=== PATIENT | female | born 1970 | race Caucasian/White ===

== ENCOUNTER 2021-05-18 15:27 | Emergency (ER) | payer OTHER, SELFPAY ==
--- NOTE | 2021-05-18 15:35 | ECG_ITS ---
Measurements Intervals [place] Rate: 90 P: 48 CT: 139 QRS: 17 QRSD: 105 T: 68 QT: 353 QTc: 434 Interpretive Statements SINUS RHYTHM INCOMPLETE RIGHT BUNDLE BRANCH BLOCK BORDERLINE ECG Electronically Signed On 05-20-2021 7:53:26 CDT by Luis Miguel Mcmanus D.O.
[2021-05-18 15:50] VITALS: BP 140/105; PULSE 87; RESP 18; TEMP 36.4; O2SAT 100
[2021-05-18] MEDS: ONDANSETRON INJ 4 MG/2 ML VIAL IV PUSH (15:50)
[2021-05-18] MEDS: SODIUM CHLORIDE 0.9% IV 1,000 ML 999 ML IV CONT (15:50)
[2021-05-18 16:15] VITALS: BP 152/97; PULSE 91; RESP 18; O2SAT 95
[2021-05-18 16:16] LABS: Basophils Absolute Auto 0.05 K/mm3 (0.00-0.10); Basophils Percent Auto 0.3 % (0.0-1.0); Eosinophils Absolute Auto 0.06 K/mm3 (0.02-0.50); Eosinophils Percent Auto 0.4 % (1.0-6.0); Hematocrit 46.4 % (35.0-49.0); Immature Granulocyte Absolute 0.08 K/mm3 (0.00-0.00); Immature Granulocyte Percent A 0.5 % (0.0-0.0); Lymphocytes Absolute Auto 1.26 K/mm3 (1.10-4.50); Lymphocytes Percent Auto 8.6 % (18.0-42.0); Mean Corpuscular HGB Conc 34.5 g/dL (32.0-36.0); Mean Corpuscular Hemoglobin 32.9 pg (27.0-31.0); Mean Corpuscular Volume 95.3 fL (78.0-102.0); Mean Platelet Volume 9.4 fl (9.2-11.8); Monocytes Absolute Auto 1.07 K/mm3 (0.10-0.90); Monocytes Percent Auto 7.3 % (2.0-11.0); Neutrophils Absolute Auto 12.1 K/mm3 (1.7-7.2); Neutrophils Percent Auto 82.9 % (50.0-70.0); Platelet Count Result 249 K/mm3 (150-420); Red Blood Count 4.87 M/mm3 (4.20-5.40); Red Cell Distribution Width 13.1 % (11.6-14.4); White Blood Count 14.6 K/mm3 (4.8-10.8)
[2021-05-18 16:29] LABS: Alanine Aminotransferase 55 U/L (14-59); Albumin Level 4.6 g/dL (3.4-5.0); Alkaline Phosphatase 68 U/L (46-116); Anion Gap 15 mmol/L (8-16); Aspartate Amino Transferase 33 U/L (15-37); Blood Urea Nitrogen 15 mg/dL (7-18); Calcium 9.1 mg/dL (8.5-10.1); Carbon Dioxide 23 mmol/L (21-32); Chloride 108 mmol/L (98-108); Creatine Kinase 59 U/L (26-192); Estimated CRCL calculation 46 ml/min; Estimated Glomerular Filt Rate 43; Glucose 100 mg/dL (70-99); Magnesium 1.9 mg/dL (1.8-2.4); Osmolality Calculated 302 mOsm/kg (285-295); Potassium 3.3 mmol/L (3.5-5.1); Sodium 146 mmol/L (136-145)
[2021-05-18 16:32] LABS: Lactic Acid Reflex 0.9 mmol/L (0.4-2.0)
[2021-05-18 16:52] LABS: Bilirubin Urine 1+ (Negative); Color Urine Yellow (Yellow); Glucose Urine UA Negative (Negative); Ketones Urine 1+ (Negative); Leukocyte Esterase Ur Negative (Negative); Nitrate Urine Negative (Negative); Protein Urine Trace (Negative); Specific Grav Ur >= 1.030 (1.010-1.020); Urobilinogen Urine 0.2 mg/dL (0.2-1.0); pH Urine 5.5 (5.0-8.0)
[2021-05-18 17:00] LABS: Add Urine Microscopic? YES; Appearance Urine Sl Cloudy (Clear); Blood Urine Trace-Intact (Negative)
[2021-05-18 17:01] LABS: Bacteria Urine 1+ /hpf; Mucus Urine Heavy /lpf; RBC Urine 0-2 /hpf (0-2); Squamous Epithelial Cell Urine Few /hpf (Few); WBC Urine None seen /hpf (0-3)
--- NOTE | 2021-05-18 17:11 | ED.FEMALEGU ---
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 Severity: mild Related Data Home Medications Medication Instructions Recorded Confirmed omeprazole 20 mg PO DAILY 05/18/21 05/18/21 Allergies Allergy/AdvReac Type Severity Reaction Status Date / Time No Known Allergies Allergy Verified 05/18/21 15:54 Review of Systems Review of Systems: All systems reviewed & are unremarkable except as noted in HPI and below PMFSH Past Medical History Medical History Patient denies medical problems Exam Const: General: no acute distress Orientation/consciousness: patient oriented x3 HENMT: Head: normal to inspection and contusion Eyes: General: appearance normal, both eyes and all related structures Conjunctivae: conjunctivae normal Pupils: Equal, round and reactive pupils present Neck: Neck: normal visual inspection, no lymphadenopathy and no meningeal signs Resp: Effort & Inspection: normal respiratory effort Auscultation: clear to auscultation bilaterally : General: Yes no CVA tenderness Back/Spine/Pelvis: Back: no CVA tenderness Skin: General skin exam: normal color Rashes: no rashes Neuro: General: patient oriented x3 and moves all extremities Psych: Mental Status: mental status grossly normal Affect: normal affect Attitude: cooperative Course Course Emergency Course: labs reviewed with patient and advised to take medicine as prescribed. Patient has improved after IV fluids. Vital Signs Vital signs: Vital Signs Temperature 36.4 C L 05/18/21 15:50 Pulse Rate 87 05/18/21 15:50 Respiratory Rate 18 05/18/21 15:50 Blood Pressure 140/105 H 05/18/21 15:50 Pulse Oximetry 100 05/18/21 15:50 Temperature 36.4 C L 05/18/21 15:50 Pulse Rate 91 05/18/21 16:15 Respiratory Rate 18 05/18/21 16:15 Blood Pressure 152/97 H 05/18/21 16:15 Pulse Oximetry 95 05/18/21 16:15 MDM - Female Genitourinary Lab Data Result diagrams: 05/18/21 16:10 05/18/21 16:10 Labs: Lab Results 05/18/21 05/18/21 05/18/21 Range/Units 15:35 16:10 16:10 WBC 14.6 H (4.8-10.8) K/mm3 RBC 4.87 (4.20-5.40) M/mm3 Hgb 16.0 H (12.0-15.0) g/dL Hct 46.4 (35.0-49.0) % MCV 95.3 (78.0-102.0) fL MCH 32.9 H (27.0-31.0) pg MCHC 34.5 (32.0-36.0) g/dL RDW 13.1 (11.6-14.4) % Plt Count 249 (150-420) K/mm3 MPV 9.4 (9.2-11.8) fl Immature Gran % (Auto) 0.5 H (0.0-0.0) % Neut % (Auto) 82.9 H (50.0-70.0) % Lymph % (Auto) 8.6 L (18.0-42.0) % Trinity % (Auto) 7.3 (2.0-11.0) % Eos % (Auto) 0.4 L (1.0-6.0) % Baso % (Auto) 0.3 (0.0-1.0) % Lymph # (Auto) 1.26 (1.10-4.50) K/mm3 Trinity # (Auto) 1.07 H (0.10-0.90) K/mm3 Eos # (Auto) 0.06 (0.02-0.50) K/mm3 Baso # (Auto) 0.05 (0.00-0.10) K/mm3 Abs Immat Gran (auto) 0.08 H (0.00-0.00) K/mm3 Absolute Neuts (auto) 12.1 H (1.7-7.2) K/mm3 Absolute Nucleated RBC 0.00 (0.00-0.00) K/mm3 Nucleated RBC % 0.0 (0-0.0) % Sodium 146 H (136-145) mmol/L Potassium 3.3 L (3.5-5.1) mmol/L Chloride 108 (98-108) mmol/L Carbon Dioxide 23 (21-32) mmol/L Anion Gap 15 (8-16) mmol/L BUN 15 (7-18) mg/dL Creatinine 1.32 H (0.55-1.02) mg/dL Estim Creat Clear Calc 46 ml/min Estimated GFR 43 L (59 - ) Glucose 100 H (70-99) mg/dL Calculated Osmolality 302 H (285-295) mOsm/kg Lactic Acid (0.4-2
[2021-05-18 17:24] VITALS: BP 146/93; PULSE 84; RESP 16; O2SAT 95
== END 2021-05-18 17:25 | disposition home or self-care (01) ==
PROVIDERS: Emergency Provider Emergency Medicine; PCP Family Medicine
DX: E86.0 Dehydration (principal); N30.00 Acute cystitis without hematuria
CPT/HCPCS: 36415; 80053; 81001; 82550; 83605; 83735; 85025; 93005; 96361; 96374; 99283; 99284; J2405; J7030

== ENCOUNTER 2023-10-15 09:26 | Emergency (ER) | payer OTHER, SELFPAY ==
[2023-10-15] VITALS (14 sets, daily range): BP systolic 130–160; BP diastolic 95–105; PULSE 89; RESP 17–24; TEMP 36.4–36.6; O2SAT 95–99
--- NOTE | ~2023-10-15 | XR_ITS ---
EXAMINATION: XR chest 1V portable DATE: 10/15/2023 09:56 INDICATION: Shortness of breath TECHNIQUE: frontal view of the chest was obtained. COMPARISON: Chest radiograph dated 12/05/2017 FINDINGS: The lungs remain clear with no focal airspace opacities, pulmonary edema, pleural effusion or pneumot horax. The cardiomediastinal silhouette is normal. Visualized bones and soft tissues are unremarkable . IMPRESSION: 1. No acute cardiopulmonary disease. Reviewed, dictated and finalized at location A. HEALTH AIDE CAREGIVER
[2023-10-15] MEDS: SODIUM CHLORIDE 0.9% IV 1,000 ML 999 ML IV CONT (10:24)
[2023-10-15] MEDS: ONDANSETRON INJ 4 MG/2 ML VIAL IV PUSH (10:24)
[2023-10-15 11:21] LABS: SARS-CoV-2 RNA PCR Negative (Negative)
[2023-10-15 11:23] LABS: Influenza A QL RT-PCR Negative (Negative); Influenza B QL RT-PCR Negative (Negative); RSV RNA, RT-PCR Negative (Negative)
--- NOTE | 2023-10-15 11:34 | ED.URI ---
HPI - URI/Sore Throat General Chief Complaint: Upper Respiratory Infection Stated Complaint: nausea; vomiting Time Seen by Provider: 10/15/23 09:32 Source: patient Mode of arrival: ambulatory Limitations: no limitations History of Present Illness HPI Narrative: this is 52-year-old female who presents with nausea and vomiting with some no abdominal pain does have some nasal congestion with no fever chills O2 saturations 96% on room air there is nonproductive cough with no chest pain no abdominal pain no diarrhea constipation. MD elicited complaint: nasal congestion Onset (ago): hour(s) Consistency: intermittent Severity: mild Related Data Allergies Allergy/AdvReac Type Severity Reaction Status Date / Time No Known Allergies Allergy Verified 10/15/23 09:53 Review of Systems Review of Systems: All systems reviewed & are unremarkable except as noted in HPI and below PMFSH Past Medical History Medical History Patient denies medical problems Exam Const: General: healthy appearing and no acute distress Nutritional Appearance: well nourished Orientation/consciousness: patient oriented x3 Eyes: Conjunctivae: conjunctivae normal Chest: Chest palpation & inspection: normal inspection of the chest Resp: Effort & Inspection: normal respiratory effort Auscultation: clear to auscultation bilaterally Cardio: Rate: regular rate Rhythm: regular rhythm GI: GI Palp: Yes Soft to palpation Auscultation: normal bowel sounds : General: Yes bladder normal to palpation Skin: General skin exam: normal color Rashes: no rashes Neuro: General: patient oriented x3 and moves all extremities Extrem: General: normal to inspection Psych: Mental Status: mental status grossly normal Course Course Emergency Course: Patient received IV fluids and IV Zofran and after reassessment patient's nausea vomiting has improved, COVID RSV and influenza are negative chest x-ray performed shows no acute cardiopulmonary abnormalities. Vital Signs Vital signs: Vital Signs Temperature 36.4 C 10/15/23 09:26 Pulse Rate 89 10/15/23 09:26 Respiratory Rate 24 H 10/15/23 09:26 Blood Pressure 160/105 H 10/15/23 09:26 Pulse Oximetry 96 10/15/23 09:26 Oxygen Delivery Room Air 10/15/23 09:26 Temperature 36.4 C 10/15/23 09:26 Pulse Rate 89 10/15/23 09:26 Respiratory Rate 24 H 10/15/23 09:26 Blood Pressure 146/99 H 10/15/23 11:01 Pulse Oximetry 96 10/15/23 11:01 Oxygen Delivery Room Air 10/15/23 09:26 MDM - URI/Sore Throat Lab Data Labs: Lab Results 10/15/23 Range/Units 10:38 Influenza A (RT-PCR) Negative (Negative) Influenza B (RT-PCR) Negative (Negative) RSV (RT-PCR) Negative (Negative) SARS-CoV-2 RNA (RT-PCR) Negative (Negative) Critical Care Time Critical Care Time Critical Care Time: No Discharge Plan Discharge Clinical Impression: Gastroenteritis Patient Disposition: Home, Self-Care Condition: Stable Instructions: Antibiotic Form, Gastroenteritis (ED), Clear Liquid Diet (ED) Additional Instructions: advised to take medicine as prescribed, can take Tylenol as needed for pain and follow up with primary within a week for further evaluation treatment. Prescriptions: New ondansetron 4 mg tablet,disintegrating 4 mg PO Q6H PRN (Reason: nausea and vomiting) Qty: 20 0RF Follow-up/Referrals: Peter,MD Marquez [Primary Care Provider] - Time of Disposition: 11:40
--- NOTE | 2023-10-15 12:00 | PC.NURSE ---
On 10/15/23, the student, Halina Fuentes, provided care and completed [facility] documentation on this patient. I have reviewed the student's documentation and agree with the findings.
== END 2023-10-15 12:02 | disposition home or self-care (01) ==
PROVIDERS: Emergency Provider Emergency Medicine; PCP Family Medicine
DX: K52.9 Noninfective gastroenteritis and colitis, unspecified (principal); Z20.822 Contact with and (suspected) exposure to COVID-19
CPT/HCPCS: 71045; 87637; 96361; 96374; 99284; J2405; J7030

== ENCOUNTER 2024-04-11 13:01 | Emergency (ER) | payer OTHER, SELFPAY ==
--- NOTE | 2024-04-11 13:09 | ED.GENADULT ---
HPI - General Adult General Chief complaint: Nausea/Vomiting/Diarrhea Stated complaint: OVERHEATED Source: patient Mode of arrival: ambulatory Limitations: no limitations History of Present Illness HPI narrative: 53 years old white female came to the ED by private car complaining of feeling overheated associated with nausea and vomiting. 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 Patient is healthy otherwise does not take medication at home, she smokes and drinks occasionally, no drug use. Related Data Home Medications Medication Instructions Recorded Confirmed No Home Medications 04/11/24 04/11/24 Allergies Allergy/AdvReac Type Severity Reaction Status Date / Time No Known Allergies Allergy Verified 04/11/24 13:07 Review of Systems Review of Systems: All systems reviewed & are unremarkable except as noted in HPI and below PMFSH Past Medical History Medical History Patient denies medical problems Exam Narrative: General appearance: Well-developed, well-nourished Skin: Diaphoretic Head: Normocephalic, nontraumatic Eyes: Clear conjunctiva ENT: Oropharynx normal, ears normal, nose normal Neck: Supple, nontender Chest and respiratory: Airway patent, no respiratory distress, no accessory muscle use Heart: Regular rate/rhythm Abdomen: Soft, nontender, no organomegaly, quiet bowel sounds Vascular: Normal peripheral pulses, normal capillary refill. Musculoskeletal: Normal range of motion, nontender back Neurologic: Alert and oriented ?3, HOGSHEAD INSPECTOR is normal as tested, no gross motor deficit Course Vital Signs Vital signs: Vital Signs Temperature 36.4 C 04/11/24 13:15 Pulse Rate 90 04/11/24 13:15 Respiratory Rate 18 04/11/24 13:15 Blood Pressure 131/100 H 04/11/24 13:15 Pulse Oximetry 95 04/11/24 13:15 Oxygen Delivery Room Air 04/11/24 13:15 Temperature 36.4 C 04/11/24 13:15 Pulse Rate 90 04/11/24 13:15 Respiratory Rate 18 04/11/24 13:15 Blood Pressure 131/100 H 04/11/24 13:15 Pulse Oximetry 95 04/11/24 13:15 Oxygen Delivery Room Air 04/11/24 13:15 Medical Decision Making Vital Signs Vital Signs: Vital Signs Temperature 36.4 C 04/11/24 13:15 Pulse Rate 90 04/11/24 13:15 Respiratory Rate 18 04/11/24 13:15 Blood Pressure 131/100 H 04/11/24 13:15 Pulse Oximetry 95 04/11/24 13:15 Oxygen Delivery Room Air 04/11/24 13:15 Temperature 36.4 C 04/11/24 13:15 Pulse Rate 90 04/11/24 13:15 Respiratory Rate 18 04/11/24 13:15 Blood Pressure 131/100 H 04/11/24 13:15 Pulse Oximetry 95 04/11/24 13:15 Oxygen Delivery Room Air 04/11/24 13:15 Lab Data 04/11/24 13:19 04/11/24 13:19 Labs: Lab Results 04/11/24 Range/Units 13:19 WBC 12.2 H (4.8-10.8) K/mm3 RBC 5.43 H (4.20-5.40) M/mm3 Hgb 18.1 H (12.0-15.0) g/dL Hct 50.6 H (35.0-49.0) % MCV 93.2 (78.0-102.0) fL MCH 33.3 H (27.0-31.0) pg MCHC 35.8 (32-36) g/dL RDW 13.3 (11.6-14.4) % Plt Count 325 (150-420) K/mm3 MPV 9.6 (9.2-11.8) fl Immature Gran % (Auto) 0.4 H (0.0-0.0) % Neut % (Auto) 72.5 H (50.0-70.0) % Lymph % (Auto) 20.1 (18.0-42.0) % Payne % (Auto) 5.3 (2.0-11.0) % Eos % (Auto) 1.0 (1.0-6.0) % Baso % (Auto) 0.7 (0.0-1.0) % Lymph # (Auto) 2.46 (1.10-4.50) K/mm3 Payne # (Auto) 0.65 (0.10-0.90) K/mm3 Eos # (Auto) 0.12 (0.02-0.50) K/mm3 Baso # (Auto) 0.08 (0.00-0.10) K/mm3 Abs Immat Gran (auto) 0.05 H (0.00-0.00)
[2024-04-11 13:15] VITALS: BP 131/100; PULSE 90; RESP 18; TEMP 36.4; O2SAT 95
[2024-04-11 13:23] LABS: Basophils Absolute Auto 0.08 K/mm3 (0.00-0.10); Basophils Percent Auto 0.7 % (0.0-1.0); Eosinophils Absolute Auto 0.12 K/mm3 (0.02-0.50); Hematocrit 50.6 % (35.0-49.0); Hemoglobin 18.1 g/dL (12.0-15.0); Immature Granulocyte Absolute 0.05 K/mm3 (0.00-0.00); Immature Granulocyte Percent A 0.4 % (0.0-0.0); Lymphocytes Absolute Auto 2.46 K/mm3 (1.10-4.50); Lymphocytes Percent Auto 20.1 % (18.0-42.0); Mean Corpuscular HGB Conc 35.8 g/dL (32-36); Mean Corpuscular Hemoglobin 33.3 pg (27.0-31.0); Mean Corpuscular Volume 93.2 fL (78.0-102.0); Mean Platelet Volume 9.6 fl (9.2-11.8); Monocytes Absolute Auto 0.65 K/mm3 (0.10-0.90); Monocytes Percent Auto 5.3 % (2.0-11.0); Neutrophils Absolute Auto 8.88 K/mm3 (1.70-7.20); Neutrophils Percent Auto 72.5 % (50.0-70.0); Platelet Count Result 325 K/mm3 (150-420); Red Blood Count 5.43 M/mm3 (4.20-5.40); Red Cell Distribution Width 13.3 % (11.6-14.4); White Blood Count 12.2 K/mm3 (4.8-10.8)
[2024-04-11] MEDS: ONDANSETRON HCL ODT 4 MG TABLET PO (13:30)
[2024-04-11] MEDS: SODIUM CHLORIDE 0.9% IV 1,000 ML 999 ML IVPB ×2 (13:42→13:47)
--- NOTE | 2024-04-11 14:15 | PC.NURSE ---
Pt given ice chips per her request. Oked per EDP
--- NOTE | 2024-04-11 14:43 | PC.NURSE ---
Pt resting comfortably. No complaints at this time.
[2024-04-11 14:45] LABS: Alanine Aminotransferase 39 U/L (6-35); Albumin Level 5.4 g/dL (3.5-5.1); Alkaline Phosphatase 81 U/L (38-126); Anion Gap 16 mmol/L (4-12); Aspartate Amino Transferase 40 U/L (14-36); Bilirubin,Total 1.1 mg/dL (0.2-1.3); Blood Urea Nitrogen 12 mg/dL (7-17); Calcium 10.1 mg/dL (8.4-10.2); Carbon Dioxide 22 mmol/L (22-30); Chloride 105 mmol/L (98-107); Estimated CRCL calculation 71 ml/min; Estimated Glomerular Filt Rate > 60; Glucose 133 mg/dL (65-110); Osmolality Calculated 297 mOsm/kg (285-295); Potassium 3.7 mmol/L (3.4-5.0); Sodium 143 mmol/L (137-145)
[2024-04-11 15:45] VITALS: BP 140/102; PULSE 98; RESP 18; TEMP 36.7; O2SAT 98
--- NOTE | 2024-04-22 12:45 | PC.NURSE ---
INFUSION WAS COMPLETED ON 04/11/24 AT 1540, TOTAL OF 2000 ML NS INFUSED.
== END 2024-04-11 15:45 | disposition home or self-care (01) ==
PROVIDERS: Emergency Provider Emergency Medicine; PCP Physician Assistant
DX: T67.5XXA Heat exhaustion, unspecified, initial encounter (principal); X30.XXXA Exposure to excessive natural heat, initial encounter
CPT/HCPCS: 36415; 80053; 85025; 96360; 96361; 99283; A9270; J7030

== ENCOUNTER 2024-07-20 12:25 | Outpatient (CLI) | payer OTHER, SELFPAY ==
--- NOTE | ~2024-07-20 | CT_ITS ---
EXAMINATION: CT abdomen w con DATE: 07/20/2024 13:05 INDICATION: 3 days of worsening right upper quadrant abdominal pain. TECHNIQUE: Computed tomography (CT) of the abdomen was performed with 100 mL Omnipaque-350 intravenou s contrast. Automated exposure control and iterative reconstruction technique were employed. The dose -length product was 455.16 mGy-cm. COMPARISON: None FINDINGS: Lung bases are clear. Heart size is normal. No pericardial or pleural effusion. Small sliding-type hi atal hernia. Diffuse hepatic steatosis. Gallbladder, spleen, pancreas, bilateral adrenal glands and l eft kidney are normal. 5 mm right renal cyst. There is an additional 6 mm soft tissue density lesion in the right kidney. Visualized portions of bowels are unremarkable. No pathologically enlarged abdom inal lymphadenopathy. Mild to moderate lumbar spondylosis. IMPRESSION: 1. No acute intra-abdominal/pelvic process. 2. Small sliding-type hiatal hernia. 3. Indeterminate 6 mm right renal lesion equivocal for complex proteinaceous/hemorrhagic cyst versus solid neoplasm. Consider follow-up pre and postcontrast MRI or CT. Reviewed, dictated and finalized at location B. NDER OPERATOR IMPRESSION: 1. No acute intra-abdominal/pelvic process. 2. Small sliding-type hiatal hernia. 3. Indeterminate 6 mm right renal lesion equivocal for complex proteinaceous/he morrhagic cyst versus solid neoplasm. Consider follow-up pre and postcontrast M RI or CT.
== END 2024-07-20 12:26 | disposition home or self-care (01) ==
PROVIDERS: PCP Family Medicine; Visit Provider Family Medicine
DX: R10.11 Right upper quadrant pain (principal); K44.9 Diaphragmatic hernia without obstruction or gangrene; N28.9 Disorder of kidney and ureter, unspecified
CPT/HCPCS: 74160; Q9967

== ENCOUNTER 2024-09-03 08:00 | Outpatient (CLI) | payer OTHER, SELFPAY ==
--- NOTE | ~2024-09-03 | MR_ITS ---
EXAMINATION: MR abdomen wo/w con DATE: 09/03/2024 09:07 INDICATION: Kidney mass TECHNIQUE: Magnetic resonance imaging (MRI) of the abdomen was performed without and with 16 mL Multi soraya intravenous contrast. Sequences included coronal T2-weighted SS-FSE, coronal and axial FS 2D-F IESTA, axial STIR FSE, axial T2-weighted SS-FSE, axial T2-weighted FS SS-FSE, axial diffusion-weighte d SE, axial dual-echo T1-weighted FSPGR, and axial and coronal T1-weighted LAVA. Postcontrast axial T 1-weighted LAVA images were obtained in a time course. Postcontrast coronal T1-weighted LAVA images w ere obtained. COMPARISON: None. FINDINGS: Heart size is normal. No pericardial or pleural effusion. Liver, gallbladder, spleen, pancreas, bilat eral adrenal glands and left kidney are normal. There is a 5 mm T2 hyperintense nonenhancing cyst at the posterior lower pole of the right kidney. A second 5 mm lesion at the anterior lower pole of the right kidney corresponding to the lesion of concern on prior CT demonstrates mildly increased T1, dec reased T2 signal and decreased signal on the postcontrast imaging suggestive of a proteinaceous/hemor rhagic cyst but too small to definitively characterize. Visualized portions of bowels are normal. No pathologically enlarged abdominal lymphadenopathy. Bones are unremarkable with normal marrow signal t hroughout. IMPRESSION: 1. 6 mm right renal lesion of concern demonstrates imaging features suggestive of a proteinaceous/hem orrhagic cyst but too small to definitively characterize. Consider follow-up 6-12 month pre and postc ontrast MRI or CT. Reviewed, dictated and finalized at location B. LINE COOK IMPRESSION: 1. 6 mm right renal lesion of concern demonstrates imaging features suggestive of a proteinaceous/hemorrhagic cyst but too small to definitively characterize. Consider follow-up 6-12 month pre and postcontrast MRI or CT.
== END 2024-09-03 08:01 | disposition home or self-care (01) ==
PROVIDERS: PCP Family Medicine; Visit Provider Family Medicine
DX: N28.89 Other specified disorders of kidney and ureter (principal)
CPT/HCPCS: 74183; A9577

== ENCOUNTER 2025-03-22 15:09 | Outpatient (CLI) | payer OTHER, SELFPAY ==
--- NOTE | ~2025-03-22 | CT_ITS ---
EXAMINATION: CT abdomen pelvis wo con DATE: 03/22/2025 15:26 INDICATION: ABDOMINAL PAIN,RIGHT LOWER QUADRANT TECHNIQUE: Computed tomography (CT) of the abdomen and pelvis was performed without intravenous contr ast. Automated exposure control and iterative reconstruction technique were employed. The dose-length product was 522.08 mGy-cm. COMPARISON: CT abdomen 07/20/2024; MR abdomen 08/26/2024. FINDINGS: Lower thorax: Unremarkable Liver: Mildly enlarged. Biliary/Gallbladder: Gallbladder is normal. No bile duct dilation. Pancreas: No mass or duct dilation. Spleen: Normal. Adrenals:No mass. Kidneys: No hydronephrosis or obstructing stone. 5 mm posterior right midpole hypodensity, cyst on pr ior MRI. 7 mm anterior right lower pole hypodensity, imaging features suggestive of a proteinaceous/h emorrhagic cyst but too small to characterize on prior MRI. GI tract: No small or large bowel dilation. Normal appendix. Diverticulosis without diverticulitis. Mesentery/Peritoneum: No ascites, mass, or free air. Retroperitoneum: No mass. Mild atherosclerotic calcifications of intra-abdominal arterial vessels. Pelvis: Pelvic organs are within normal limits. Soft Tissues: Small fat-containing umbilical hernia. 1.5 cm fluid collection at the umbilicus, with a djacent dermal thickening. Bones: No acute osseous finding. IMPRESSION: Mild hepatomegaly. 1.5 cm umbilical fluid collection with adjacent dermal thickening, may represent small abscess or ent rapped fluid/debris with cellulitis, correlate clinically. Redemonstration of the subcentimeter indeterminate right midpole renal lesion, prior recommendation f or follow-up MRI is unchanged. Reviewed, dictated and finalized at location K. IMPRESSION: Mild hepatomegaly. 1.5 cm umbilical fluid collection with adjacent dermal thickening, may represen t small abscess or entrapped fluid/debris with cellulitis, correlate clinically . Redemonstration of the subcentimeter indeterminate right midpole renal lesion, prior recommendation for follow-up MRI is unchanged.
--- OUTSIDE RECORDS SUMMARY | 2025-03-22 15:14 | XMS_ITS | Encounter Summary ---
Author Organization [facility] Address [address] [place] [id number] Care Team Providers Care Yacht Hand Name Role Phone Jordin Phan MD Primary Care Provider [phone] Marquez Green MD Primary Care Provider Encounter Details Date Type Department Care Team (Late st Contact Info) Description 02/12/2019 Abstract SFL CONVERSION [address] [place] [address] , Generic Conversion, Social History Tobacco Use Types Packs/Day Years Used Date Smoking Tobacco: Never Assessed Comments Unknown Sex and Gender Information Value Date Recorded Sex Assigned at Female 12/08/2024 11:03 AM CDT Legal Sex Female 8:50 PM CDT Gender Identity Not on file Sexual Orientation Not on file documented as of this encounter Plan of Treatment Not on file documented as of this encounter Visit Diagnoses Not on filedocumented in this encounter Additional Health Concerns Infection Onset Date Last Indicated Resolved Time COVID-19 Rule Out 06/20/2022 06/20/2022 06/20/2022 9:52 AM CDT documented as of this encounter Care Teams Yacht Hand Relationship Specialty Start Date End Date Jordin Phan MD [address] [place] [phone] PCP - General FAMILY PRACTICE 04/29/19 12/07/24 Marquez Green MD [address] [place] [phone] PCP - General FAMILY PRACTICE 12/08/24 documented as of this encounter
--- OUTSIDE RECORDS SUMMARY | 2025-03-22 15:14 | XMS_ITS | Clinical Summary ---
Author Organization [facility] Address [address] [place] [id number] Care Team Providers Care Progress Clerk Name Role Phone Marquez Green MD Primary Care Provider [phone] Allergies No known active allergies Medications No known medications Social History Tobacco Use Types Packs/Day Years Used Date Smoking Tobacco: Never Smokeless Tobacco: Never Alcohol Use Standard Drinks/Week Comments No 0 (1 standard drink = 0.6 oz pur e alcohol) AUDIT-C Answer Date Recorded Frequency of Alcohol Consumption Never 04/29/2019 Average Number of Drinks Not on file 019 Frequency of Binge Drinking Not on file 04/08 Comments No Sex and Gender Information Value Date Recorded Sex Assigned at Female 12/08/2024 11:03 AM CDT Legal Sex Female 8:50 PM CDT Gender Identity Not on file Sexual Orientation Not on file Last Filed Vital Signs Vital Sign Reading Time Taken Comments Blood Pressure 136/93 06/20/2022 9:26 AM CDT Pulse 65 06/20/2022 10:30 AM CDT Temperature 36.1 C (97 F) 06/20/2022 9:26 AM CDT Respiratory Rate 16 06/20/2022 10:30 AM CDT Oxygen Saturation 94% 06/20/2022 10:30 AM CDT Inhaled Oxygen Concentration - - Weight 76.2 kg (168 lb) 06/20/2022 9:26 AM CDT Height 160 cm (5' 3) 06/20/2022 9:26 AM CDT Body Mass Index 29.76 06/20/2022 9:26 AM CDT Plan of Treatment Health Maintenance Due Date Last Done Comments Cervical Cancer Screening Pa p Smear (Age 30 to 64) Every 3 Years 1972 Colorectal Cancer Screening Colonoscopy (10 Years) 1972 Annual Physical 1975 Hepatitis C 1990 Hepatitis B Vaccines (1 of 3 - 19+ 3-dose series) 1991 Cervical Cancer Screening Pa p with HPV Testing (Age 30 to 64) Every 5 Years 2002 Cervical Cancer Screening with HPV 2002 Mammogram Screening 2012 Pneumococcal Vaccine: 50+ Ye ars (1 of 1 - PCV) 2022 Zoster Vaccines (1 of 2) 2022 DTaP, Tdap and Td Vaccines ( 2 - Td or Tdap) 11/18/2023 11/17/2013 COVID-19 Vaccine (1 - 2023-2 5 season) 2024 Meningococcal B Vaccine Aged Out No l onger eligible based on patient's age to complete this topic Meningococcal Vaccine Aged Out No eron eleazar eligible based on patient's age to complete this topic RSV Immunizations Under 20 Months Aged Out No longer eligible based on patient's age to complete this topic Insurance Care Teams Progress Clerk Relationship Specialty Start Date End Date Marquez Green MD [address] [place] [phone] PCP - General FAMILY PRACTICE 12/08/24
--- OUTSIDE RECORDS SUMMARY | 2025-03-22 15:14 | XMS_ITS ---
Author Organization Unknown Address [address] [place] [phone] Phone Care Team Providers Care Client Care Specialist Name Role Phone TERESA Choi ANDER Attending Unavailable NO PCP Primary Unavailable Immunization Immunization Date Status Additional Notes Code Code System Tdap 11/17/2013 Completed 115 CVX Results URINALYSIS w/Microscopy/C&S if indicated - Collect Date/Time: 09/08/2023 19:10 [facility] ID: [id number] [address] [place], [place], [id number] LOINC: 40428-3 Test Value Unit Reference Range Code Code System Flag UR SOURCE UNKNOWN 12911-8 LOINC COLOR YELLOW YELLOW 5778-6 LOINC CLARITY CLEAR CLEAR 71700-3 LOINC SPEC GRAVITY 1.020 1.000-1.030 5811-5 LOINC PH 6.5 5.0 - 6.5 5803-2 LOINC LEUK EST NEGATIVE NEGATIVE 5799-2 LOINC NITRATE NEGATIVE NEGATIVE PROTEIN NEGATIVE NEGATIVE 5804-0 LOINC GLUCOSE NEGATIVE NEGATIVE 81467-2 LOINC KETONES TRACE NEGATIVE 26531-1 LOINC A UROBILINOGEN 0.2 NEGATIVE 5818-0 LOINC BILIRUBIN NEGATIVE NEGATIVE 81478-2 LOINC BLOOD 1+ NEGATIVE 03294-2 LOINC WBC 0-2 0 - 2 17914-0 LOINC RBC 0-2 0 - 2 71519-5 LOINC EPITHELIAL FEW RARE-FEW 37771-7 LOINC BACTERIA FEW NONE SEEN 02547-9 LOINC MUCUS MODERATE NONE SEEN 8247-9 LOINC A ~ COMMENT RECOLLECT REQUESTED ~~ COMMENT Prob. contamination due to improper collec YEAST NOT PRESENT NOT PRESENT 44102-0 LOINC CASTS SEE BELOW 73187-0 LOINC CRYSTALS NONE SEEN 81227-0 LOINC CULTURE? NO 8251-1 LOINC DIAGNOSIS N/A CBC W/ DIFF - Collect Date/T leydi: 09/08/2023 17:37 [facility] ID: [id number] [address] [place], [place], [id number] LOINC: 33044-8 Test Value Unit Reference Range Code Code System Flag WBC 7.3 10^3uL L=4.8 H=10.8 RBC 4.99 10^6uL L=4.20 H=5.40 HEMOGLOBIN 16.4 g/dL L=12.0 H=16.0 718-7 LOINC H HEMATOCRIT 47.5 VOL% L=37.0 H=47.0 4544-3 LOINC H MCV 95.2 fL L=81.0 H=99.0 MCH 32.9 pg L=27.0 H=32.0 H MCHC 34.5 g/dL L=32.0 H=36.0 PLATELETS 182 10^3uL L=100 H=400 37008-4 LOINC RDW 13.0 % L=11.7 H=15.5 %GRAN 85.9 % L=40.0 H=70.0 03098-6 LOINC H %LYMPH 5.1 % L=20.0 H=45.0 736-9 LOINC L %MONO 8.0 % L=2.0 H=10.0 52264-3 LOINC %EOS 0.1 % L=0.0 H=6.0 713-8 LOINC %BASO 0.6 % L=0.0 H=3.0 706-2 LOINC #NEUT 6.2 10^3uL L=1.9 H=7.6 49092-7 LOINC #LYMPH 0.4 10^3uL L=0.9 H=4.9 38922-2 LOINC L #MONO 0.6 10^3uL L=0.1 H=0.9 06723-2 LOINC #EOS 0.0 10^3uL L=0.0 H=0.6 712-0 LOINC #BASO 0.04 10^3uL L=0.00 H=0.10 10028-5 LOINC #IM GRANS 0.0 10^3uL L=0.0 H=7.0 86093-5 LOINC %IM GRANS 0.3 % L=0.0 H=5.0 65784-2 LOINC %NRB 0.0 L=0.0 H=0.2 12972-5 LOINC #NRB 0.000 L=0.000 H=0.012 54829-3 LOINC MANUAL DIFF NOT INDICATED RBC MORPH NOT INDICATED COMPREHENSIVE METABOLIC PANE L - Collect Date/Time: 09/08/2023 17:37 [facility] ID: [id number] [id number] [place], [place], [id number] LOINC: 62923-4 Test Value Unit Reference Range Code Code System Flag FASTING UNKNOWN BUN 8 mg/dL L=7 H=20 3094-0 LOINC CREATININE 0.70 mg/dL L=0.52 H=1.04 2160-0 LOINC GLUCOSE 120 mg/dL L=74 H=106 2345-7 LOINC H SODIUM 139 mmol/L L=132 H=144 2951-2 LOINC POTASSIUM 3.8 mmol/L L=3.5 H=5.1 2823-3 LOINC CHLORIDE 103 mmol/L L=98 H=107 2075-0 LOINC CO2 23.0 mmol/L L=22.0 H=30.0 8-9 LOINC ANION GAP 17 L=10 H=20 22319-2 LOINC OSMOLALITY 288 mOs/kG L=280 H=296 39760-2 LOINC BUN/CREAT 11.4 3097-3 LOINC CALCIUM 9.7 mg/dL L=8.3 H=10.5 13745-9 LOINC AST 30 U/L L=15 H=46 1920-8 LOINC ALT 50 U/L L=9 H=72 1742-6 LOINC ALKALINE PHOS 69 U/L L=38 H=126 6768-6 LOINC TOTAL BILI 0.5 mg/dL L=0.2 H=1.3 1975-2 LOINC ALBUMIN 4.7 G/dL L=3.5 H=5.0 1751-7 LOINC TOTAL PROTEIN 7.6 g/L L=6.3 H=8.2 2885-2 [facility] A/G RATIO 1.6 38704-8 LOINC AGE 52 13666-8 LOINC eGFR NON-AFR 94 ml/min eGFR AFR AMER 114 ml/min RESPIRATORY 4 PLEX COVID FLU RSV PCR - Collect Date/Time: 09/08/2023 17:37 [facility] ID: [id number] [address] [place], [place], [id number] LOINC: 78791-3 Test Value Unit Reference Range Code Code System Flag SARS CoV2 PCR NEGATIVE FLU A PCR POSITIVE A FLU B PCR NEGATIVE RSV PCR NEGATIVE SEND TO [facility]? YES A CHEST 1V - Completed: 2023 17:59 LOINC: EXAM DESCRIPTION: CHEST 1V REASON FOR STUDY: Nausea, vomiting, cough, congestion, headache for 1-2 days. History of GERD. Smoker. Duration: 1-2 days Smoking History: current TECHNIQUE: Single radiographic view(s) of the chest. COMPARISON: 09/06/2011. FINDINGS: LUNGS: No focal opacity, pleural effusion, or pneumothorax. HEART/MEDIASTINUM: Cardiac silhouette normal in size. Mediastinal and hilar contours appear normal. LINES/TUBES: None. BONES: No acute osseous abnormality. IMPRESSION: No acute cardiopulmonary abnormality. THIS IS AN ELECTRONICALLY VERIFIED FINAL REPORT 09/08/2023 6:23 PM - Electronically signed by Zay Sal M.D., D.O. Zay Sal M.D., D.O. MW: [id number] Report ID: [id number] Reading Location: [id number] Social History Type Status Start Date End Date Code Code Syst em Smoking History Never smoker (Never Smoked) [id number] SNOMED CT Sex Female Assessment You had the following problems:CONTACT WITH AND (SUSPECTED) EXPOSURE TO OTHER VIRAL COMMUNICABLE DISEASES Hospital Discharge Instructions Should you have any questions prior to discharge, please contact a member of your healthcare team. If you have left the hospital and have any questions, please contact your primary care physician. Reason For Referral No Data Found Problems Problem Start Date Resolved Date Status Code Code System CONTACT WITH AND (SUSPECTED) EXPOSURE TO OTHER VIRAL COMMUNICABLE DISEASES active 990598447 SNOMED -CT Plan of Treatment COVID-19 Drive Thru Screen 09/04/2020 Encounters Encounter Diagnosis Start Date Code Code Sys tem Influenza due to other ident ified influenza virus with other respiratory manifestations 09/08/2023 SNOMED- CT Personal Care Team Section Imaging Narrative Notes
== END 2025-03-22 15:10 | disposition home or self-care (01) ==
PROVIDERS: PCP Family Medicine; Visit Provider Family Medicine
DX: R10.31 Right lower quadrant pain (principal); R16.0 Hepatomegaly, not elsewhere classified; N28.9 Disorder of kidney and ureter, unspecified
CPT/HCPCS: 74176